=== PATIENT | male | born 1955 | race Asian ===

== ENCOUNTER 2016-12-27 18:15 | Emergency (ER) | payer BC, MEDICARE ==
[~2016-12-27] VITALS: Ht 167.6 cm; Wt 60.3 kg
[2016-12-27 20:03] LABS: Basophils # (auto) 0 uL; Basophils % (auto) 0.5 % (0.0-2.0); DEFINITIVE VIEW TRANSMISSION; Eosinophils # (auto) 0.1 uL; Eosinophils % (auto) 0.9 % (0.0-7.0); Hematocrit 43.4 % (41.0-53.0); Hemoglobin 14.2 g/dL (13.5-17.5); Lymphocytes # (auto) 1.8 uL; Lymphocytes % (auto) 22.8 % (10.0-50.0); Mean Corpuscular Hemoglobin 24.1 pg (28.0-32.0); Mean Corpuscular Hgb Conc. 32.7 g/dL (32.0-36.0); Mean Corpuscular Volume 73.7 fL (80.0-100.0); Mean Platelet Volume 8.3 fL (7.4-10.4); Monocytes # (auto) 0.7 uL; Monocytes % (auto) 8.8 % (0.0-12.0); Neutrophils # (auto) 5.4 uL; Platelet Count (auto) 277 10^3/uL (140-450); Red Cell Distribution Width 15.8 % (11.6-16.0); SUSPECT VIEW TRANSMISSION
[2016-12-27 20:27] LABS: Albumin 4.2 g/dL (3.4-5.0); Alkaline Phosphatase 57 U/L (45-117); Anion Gap 17 (5-15); Aspartate Aminotransferase 33 U/L (15-37); BUN/Creatinine Ratio 13.5; Bilirubin, Total 1.3 mg/dL (0.2-1.0); Blood Urea Nitrogen 13 mg/dL (7-18); Calcium 9.3 mg/dL (8.5-10.1); Carbon Dioxide 26 mmol/L (21-32); Chloride 87 mmol/L (98-107); GFR African American 102 mL/min; GFR Non-African American 85 mL/min; Glucose 87 mg/dL (74-106); Potassium 4.4 mmol/L (3.5-5.1); Sodium 130 mmol/L (136-145); Total Protein 7.7 g/dL (6.4-8.2); Uric Acid 10.9 mg/dL (3.5-7.2)
[2016-12-27 20:35] LABS: B-Type Natriuretic Peptide 195.34 pg/mL (0-100); Temperature: 23.5 C (20.0-25.0)
[2016-12-27] MEDS ORDERED: METOPROLOL TARTRATE 50 MG TAB ONE (22:10)
[2016-12-27] MEDS ORDERED: METOPROLOL TARTRATE 50 MG TAB PO ONE (22:30)
[2016-12-27] MEDS ORDERED: ALLOPURINOL 300 MG TAB PO ONE (23:00)
[2016-12-27] MEDS ORDERED: FUROSEMIDE 20 MG/2 ML VIAL IV ONE (23:00)
[2016-12-28 01:03] VITALS: BP 119/62
== END 2016-12-28 01:15 | disposition left against medical advice (07) ==
LOC: ER 18:19
DX: I48.91 Unspecified atrial fibrillation (principal); I11.0 Hypertensive heart disease with heart failure; I50.9 Heart failure, unspecified; M10.00 Idiopathic gout, unspecified site; E87.1 Hypo-osmolality and hyponatremia; R42 Dizziness and giddiness
CPT/HCPCS: 36415; 71010; 73200; 80053; 83880; 84484; 84550; 85025; 93005; 96374; 99285; J1940